=== PATIENT | male | born 1950 | race Caucasian/White ===

== ENCOUNTER → 2016-11-04 | Outpatient (CLI) | payer OTHER ==
--- NOTE | 2016-11-06 08:25 | MR ---
EXAMINATION TYPE: MR cervical spine wo con DATE OF EXAM: 11/04/2016 1:14 PM COMPARISON: NONE HISTORY: Upper extremity neurology TECHNIQUE: Multiplanar, multisequence images of the cervical spine were acquired. C2-C3: No evidence for degenerative disc disease. No disc bulge/herniation or protrusion. No Canal stenosis. Foramina are patent bilaterally. C3-C4: There is facet arthropathy. Mild degenerative disc disease and uncovertebral joint hypertrophy . Broad-based central disc bulging results in mild to moderate canal stenosis and mild left foraminal encroachment and moderate right foraminal encroachment. C4-C5: Severe degenerative disc disease with cervical spondylosis, facet arthropathy and uncovertebra l joint hypertrophy. Moderate to severe foraminal encroachment bilaterally. There is broad-based cent ral disc protrusion capped by spur with anterior mild mass effect upon the spinal cord. Severe spinal stenosis. C5-C6: Severe degenerative disc disease with left paracentral broad-based protrusion or small herniat ion. Mild bilateral foraminal encroachment and moderate degenerative disc disease. Herniation results in mild spinal stenosis. C6-C7: Severe degenerative disc disease with focal right paracentral disc herniation. There is severe mass effect upon the thecal sac and compression of the anterior margin the spinal cord. Uncovertebra l joint hypertrophy seen bilaterally. Neural foramina remain patent. C7-T1: Right paracentral disc protrusion. There is uncovertebral joint hypertrophy bilaterally. Neura l foramina remain patent. No spinal cord contact. Mild compression thecal sac. Cervical segments are intact. There is normal alignment. Cervical spinal cord is of normal signal. Craniovertebral junction relationships are within normal limits. IMPRESSION: 1. Multilevel severe degenerative disc disease. There is spinal cord compression secondary to disc he rniation C6-C7. 2. Severe canal stenosis C4-C5 with moderate canal stenosis C3-C4 and mild canal stenosis C5-C6 secon abbie to disc extrusions or herniations.
== END | disposition home or self-care (01) ==
LOC: RADMRIMAIN 12:26
PROVIDERS: ATTEND Physical Medicine & Rehabilitation
DX: M50.21 Other cervical disc displacement, high cervical region (principal); M50.31 Other cervical disc degeneration, high cervical region; M48.02 Spinal stenosis, cervical region
CPT/HCPCS: 72141

== ENCOUNTER → 2017-03-20 | Outpatient (CLI) | payer OTHER, MEDICARE ==
[2017-03-20 16:56] LABS: Non-African American GFR(MDRD) >60 (>60 ml/min/1.73 sqM)
== END | disposition home or self-care (01) ==
LOC: LABWHC1 16:17
PROVIDERS: ATTEND Physical Medicine & Rehabilitation
DX: M51.16 Intervertebral disc disorders with radiculopathy, lumbar region (principal)
CPT/HCPCS: 36415; 82565

== ENCOUNTER → 2017-03-21 | Outpatient (CLI) | payer OTHER ==
--- NOTE | 2017-03-22 15:37 | MR ---
EXAMINATION TYPE: MR lumbar spine wo/w con DATE OF EXAM: 03/21/2017 COMPARISON: NONE HISTORY: other intervertebral disc degeneration lsp CONTRAST: 17 mL intravenous MultiHance. TECHNIQUE: Multiplanar, multisequence images of the lumbar spine were acquired. FINDINGS: L5-S1: There is a left paracentral disc herniation displacing and compressing the exiting left S1 ner ve root. Facet hypertrophy is present. Loss of disc height is evident. Disc desiccation is present. L4-L5: There is mild disc bulge with mild anterior thecal sac compression. Increased signal is presen t on T2-weighted sequences suggesting an annular tear. No AP spinal canal stenosis is present. Neural foramen are patent. L3-L4: Minimal disc bulge is present with anterior thecal sac contact. No AP spinal canal stenosis pr esent. Neural foramen are patent. L2-L3: Minimal right paracentral disc bulge has minimal anterior thecal sac compression. No AP spinal canal stenosis or neural foraminal stenosis is present. L1-L2: No significant disc bulge or disc herniation. No spinal canal stenosis. No foraminal stenosi s. . T12-L1: No significant disc bulge or disc herniation. No spinal canal stenosis. No foraminal stenos is. . No abnormal enhancement. IMPRESSION: 1. Left paracentral disc herniation impinging the exiting left S1 nerve root near the foramen orifice . Correlate with the patient's radicular symptoms. 2. Degenerative disc changes with loss of disc height L5-S1. 3. Mild disc bulge L4-5. Annular tear may be present. 4. Minimal disc bulge L3-4.
== END | disposition home or self-care (01) ==
LOC: RADMRIMAIN 12:08
PROVIDERS: ATTEND Physical Medicine & Rehabilitation
DX: M51.26 Other intervertebral disc displacement, lumbar region (principal); M47.816 Spondylosis without myelopathy or radiculopathy, lumbar region
CPT/HCPCS: 72158; A9577

== ENCOUNTER 2017-06-06 09:06 | Day surgery (SDC) | payer OTHER ==
[2017-06-06] MEDS ORDERED: LACTATED RINGERS 1,000 ML IV ONE (09:49)
[2017-06-06] MEDS ORDERED: LIDOCAINE 1% 20 ML VIAL (10MG/ML) FOR IV START INTRADERMA ONE (09:50)
[2017-06-06] MEDS ORDERED: ONDANSETRON 4 MG/2 ML VIAL IVP ONE (09:53)
[2017-06-06] MEDS ORDERED: DEXAMETHASONE SOD PHOSPHATE 10 MG/ML 1 ML VIAL IV ONE (09:53)
[2017-06-06] MEDS ORDERED: fentaNYL (PF) 50 MCG/ML 2 ML AMP IVP ONE ×2 (11:08→11:23)
[2017-06-06] MEDS ORDERED: MIDAZOLAM 2 MG/2 ML VIAL IV ONE (11:49)
[2017-06-06] MEDS ORDERED: HYDROmorphone (PF) 1 MG/ML ONE (12:16)
[2017-06-06] MEDS ORDERED: PROPOFOL 10 MG/ML 20 ML VIAL IV ONE (12:16)
[2017-06-06] MEDS ORDERED: MIDAZOLAM 2 MG/2 ML VIAL ONE (12:16)
[2017-06-06] MEDS ORDERED: LIDOCAINE 1% INJ 10MG/ML (20 ML MDV) ONE (12:16)
[2017-06-06 12:54] VITALS: TEMP 96.9
--- NOTE | 2017-06-06 13:16 | FL ---
FLUOROSCOPY 7 seconds of fluoroscopy time were utilized during closed reduction of the left wrist. 4 images docum ent the procedure.
[2017-06-06 13:36] VITALS: RESP 18
[2017-06-06] MEDS ORDERED: HYDROmorphone 1 MG/ML 1 ML SYRINGE IVP ONE ×2 (13:38→13:43)
--- NOTE | 2017-06-06 13:51 | XR ---
FLUOROSCOPY 7 seconds of fluoroscopy time were utilized during closed reduction of the left breast. 4 images docu ment the procedure.
[2017-06-06 14:49] VITALS: BP 136/79; PULSE 4
--- NOTE | 2017-06-08 11:25 | OP ---
DATE OF PROCEDURE: 06/06/2017 CRIMINAL PROFILER: ( ) PREOPERATIVE DIAGNOSIS: Displaced fracture of the distal left radius and ulna styloid. POSTOPERATIVE DIAGNOSIS: Displaced fracture of the distal left radius and ulna styloid. OPERATION: Closed reduction of displaced fracture of the distal left radius and ulna styloid with application of long arm cast under anesthesia. PROCEDURE: The patient was taken to the operative suite and placed in the supine position. General inhalation anesthesia was performed by Department of Anesthesiology. A gentle closed reduction was performed on the distal radius and ulna styloid. X-rays were repeated. Application of a long arm fiberglass cast was applied. We repeated the x-rays post reduction as well as within the cast. ( ) reduction ( ) alignment and ( ) noted. Patient tolerated the procedure well and was transferred to recovery room satisfactory postop condition. GROSS PATHOLOGY: There is a dorsal angulated displaced comminuted fracture of the distal left radius and ulna styloid. EDWIN
== END 2017-06-06 15:03 | disposition home or self-care (01) ==
LOC: OR 09:06
PROVIDERS: ATTEND Orthopaedic Surgery
DX: S52.502A Unspecified fracture of the lower end of left radius, initial encounter for closed fracture (principal); S52.612A Displaced fracture of left ulna styloid process, initial encounter for closed fracture; W18.30XA Fall on same level, unspecified, initial encounter; I10 Essential (primary) hypertension; Z86.718 Personal history of other venous thrombosis and embolism; Z79.01 Long term (current) use of anticoagulants; K75.9 Inflammatory liver disease, unspecified; Z79.82 Long term (current) use of aspirin; Z79.891 Long term (current) use of opiate analgesic; Z79.899 Other long term (current) drug therapy; Z91.09 Other allergy status, other than to drugs and biological substances
CPT/HCPCS: 73100; 25605; J2250; J1100; J2405; J2001; J3010; J1170; J2704

== ENCOUNTER → 2017-07-19 | Outpatient (CLI) | payer OTHER ==
--- NOTE | 2017-07-19 13:22 | BD ---
EXAMINATION TYPE: MG DEXA axial skeleton. DATE OF EXAM: 07/19/2017 COMPARISON: NONE CLINICAL HISTORY: 67-year-old male personal history of healed traumatic fracture Height: 6 FT Weight: 195 FRAX RISK QUESTIONS: Alcohol (3 or more units per day): NO Family History (Parent hip fracture): NO Glucocorticoids (More than 3mos): NO (Ex: prednisone, prednisolone, methylprednisolone, dexamethasone, and hydrocortisone). History of Fracture in Adulthood: YES Secondary Osteoporosis: 1. Type 1 Diabetes: NO 2. Hyperthyroidism: NO 3. Menopause before 45: NA 4. Malnutrition: NO 5. Chronic liver disease: NO Rheumatoid Arthritis: NO Current Tobacco Use: NO RISK FACTORS HISTORY OF: History of Wrist Fracture: YES When: 2016 AND 2010 LEFT Surgery to Spine/Hip(right/left)/Wrist (right/left): LUMBAR SURG When: 2005 AND 2008 Active: NO MEDICATIONS: Additional Medications: LISINOPRIL,XERALTO,OXYCODONE, NEURONTIN, URINARY FLOW MEDS, DEPRESSION MEDS Additional History: EXAM MEASUREMENTS: Bone mineral densitometry was performed using the [employer] System. Bone mineral density as measured about the Lumbar spine is: ----- L1-L4(G/cm2): LUMBAR SURG X 2 Bone mineral density about the R hip (g/cm2): 0.834 Bone mineral density about the L hip (g/cm2): 0.864 T Score values are as follows: -----R Neck: -1.5 -----L Neck: -1.3 -----R Total: 0.3 -----L Total: 0.2 Bone mineral density has: Increased 0.7% since study of: 2009 IMPRESSION: Osteopenia (T Score between -2.5 and -1 as noted by T score values in both hips). Lumbar spine measur ements not made as there is previous surgery here. There is slightly increased risk of fracture and the patient may be considered for treatment. Re-Scre en 2-5 years. NOTE: T-SCORE=SD OF THE YOUNG ADULT MEAN.
== END | disposition home or self-care (01) ==
LOC: RADBDWWP 08:09
PROVIDERS: ATTEND Family Medicine
DX: Z09 Encounter for follow-up examination after completed treatment for conditions other than malignant neoplasm (principal); M85.88 Other specified disorders of bone density and structure, other site; Z87.81 Personal history of (healed) traumatic fracture
CPT/HCPCS: 77080

== ENCOUNTER → 2017-12-18 | Outpatient (CLI) | payer OTHER ==
[2017-12-18 15:02] VITALS: BP 147/76; PULSE 71; RESP 16; TEMP 97.7
--- NOTE | 2017-12-18 15:21 | P.PN ---
Subjective Progress Note Date: 12/18/17 Principal diagnosis: Lumbar postlaminectomy pain syndrome. The patient had 3 back surgeries the last one was in July 2017 ,which was lumbar fusion between L4 and S1. His pain is still mostly in the lower back with radiation to the thighs bilaterally. He denies any bowel or bladder dysfunction or any weakness in his lower extremities. The patient was able to go down on his oxycodone dose from 120 mg a day before surgery to 20-30 mg a day after surgery. His pain gets worse with activity and was sitting up and during the interview he was lying back in chair. By physical exam he has well-healed scar from his previous back surgery. He has significant tenderness around the sacroiliac joints bilaterally. However Reed's test was negative bilaterally. Straight leg raising test negative bilaterally. Internal and external rotation of the hip joints did not elicit any pain in the hips. Neuro exam of the lower extremities showed normal and symmetrical muscle strength but he has absent left ankle reflex. The patient gets his prescription for oxycodone from Dr. Arauz. Objective - Vital Signs Vital signs: Vital Signs Temp 97.7 F 12/18/17 14:52 Pulse 71 12/18/17 14:52 Resp 16 12/18/17 14:52 BP 147/76 12/18/17 14:52 Pulse Ox Intake & Output 12/17/17 12/18/17 12/18/17 18:59 06:59 18:59 Weight 86.183 kg Assessment and Plan Plan: Assessment: 1-bilateral sacroiliitis/sacroiliac joints dysfunction 2-lumbar postlaminectomy pain syndrome I will schedule the patient to have bilateral sacroiliac joint steroid injection under fluoroscopic guidance.
== END ==
LOC: PNWHC3 14:18
PROVIDERS: ATTEND Anesthesiology
DX: M96.1 Postlaminectomy syndrome, not elsewhere classified (principal); Z79.891 Long term (current) use of opiate analgesic
CPT/HCPCS: 99211

== ENCOUNTER 2018-01-18 07:31 | Day surgery (SDC) | payer OTHER ==
[2018-01-18 08:03] VITALS: RESP 16; TEMP 97.8
[2018-01-18] MEDS ORDERED: LIDOCAINE 1% 20 ML VIAL (10MG/ML) FOR IV START INTRADERMA ONE (08:07)
[2018-01-18] MEDS ORDERED: LACTATED RINGERS 1,000 ML IV ONE (08:07)
--- NOTE | 2018-01-18 08:13 | P.PCN ---
Date of Procedure: 01/18/18 Procedure(s) Performed: Bilateral sacroiliac joint steroid injection under fluoroscopy Condition: stable Disposition: PACU Description of Procedure: Preoperative diagnoses: 1. Lumbosacral Spondylosis 2. Bilateral sacroiliitis. Postoperative diagnoses: Same as preoperative diagnosis. Procedure: Bilateral sacroiliac joint steroid injection under fluoroscopic guidance. Surgeon: Taiwo Foley M.D. Anesthesia: Conscious sedation with Versed 2 mg and fentanyl 100 micrograms and local infiltration with lidocaine 1% 4 ml EBL: None Procedure indication: The patient had a history of severe chronic low back pain , diagnosed with sacroiliitis and lumbar sacral facet arthropathy unresponsive to conservative treatment. Procedure description: The patient was seen and identified in the preoperative holding area, risks and benefits and alternative of the procedure and possible complications discussed with the patient, and he agreed with the preceding, patient signed the consent, an IV was started, and vital signs were monitored and were stable throughout the procedure, patient was placed in the prone position or table and the lumbosacral area was prepped and draped with a sterile fashion, vital signs were closely monitored during the procedure, the fluoroscopy camera was placed in the contralateral oblique view on the right sacroiliac joint and the lower part of the joint was identified a 2 mL then a 25 -gauge Quincke-type spinal needle advanced slowly under fluoroscopy and placed in the posterior and inferior border of the right sacroiliac joint, placement confirmed with AP and lateral view, and after appropriate needle placement confirmed and after negative aspiration for heme and CSF and there was , 3 ml of Marcaine 0.5% and 40 mg of Kenalog injected after negative aspiration, no paresthesia during the injection, no resistance to injection, and the needle was removed. The entire same procedure was repeated for the left sacroiliac joint Patient tolerated the procedure well without any complication. The patient returned to supine position after the back was cleaned and a Band- Aid applied, the patient transported to recovery room in stable condition and he was monitored for 30 minutes before he was discharged home and then patient was reexamined before going home and patient was discharged in stable condition and patient will follow up with the pain clinic in a few weeks
[2018-01-18] MEDS ORDERED: IV FLUID CONTINUATION 1,000 ML IV ONE (08:38)
[2018-01-18 09:21] VITALS: BP 122/83; PULSE 46
--- NOTE | 2018-01-18 10:27 | FL ---
EXAMINATION TYPE: FL guided pain mgmt statistic DATE OF EXAM: 01/18/2018 CLINICAL HISTORY: Low back and sacroiliac joint pain. TECHNIQUE: Fluoroscopy. COMPARISON: None. FINDINGS: Fluoroscopic guidance was provided during pain relief procedure performed by Dr. Smith . A total of 11 seconds of fluoroscopic time was utilized during the procedure and two spot images are acquired. Images acquired shows needle localization at level of bilateral sacroiliac joints. There is partial visualization of fusion hardware in the lower lumbar spine. IMPRESSION: As Above.
== END 2018-01-18 09:34 | disposition home or self-care (01) ==
LOC: ORPAIN 07:31
PROVIDERS: ATTEND Anesthesiology
DX: G89.29 Other chronic pain (principal); M46.1 Sacroiliitis, not elsewhere classified; M47.816 Spondylosis without myelopathy or radiculopathy, lumbar region; M96.1 Postlaminectomy syndrome, not elsewhere classified; H91.90 Unspecified hearing loss, unspecified ear; Z79.01 Long term (current) use of anticoagulants
CPT/HCPCS: 27096; J3301

== ENCOUNTER → 2018-02-05 | Outpatient (CLI) | payer OTHER ==
--- NOTE | 2018-02-05 15:24 | P.PAINPG ---
Subjective Progress Note Date: 02/05/18 This is follow-up visit for this patient with a history of severe and chronic low back pain secondary to lumbar degenerative disc diseases , sacroiliitis, he had lumbar laminectomy and fusion surgery , we have done bilateral sacroiliac joint steroid injection and this helped his low back pain significantly, the pain relief lasted for a few weeks Patients currently on Patient denies any side effects of the medication, denies excessive drowsiness or sleepiness, denies suicidal ideation, and reports that the current pain medication is helping To control the pain ,and improve activity of daily living Patient denies any motor or sensory deficit , patient denies any fever or night sweats, denies any change in the bowel movements or urination Objective - Vital Signs Vital signs: Intake & Output 02/04/18 02/05/18 02/05/18 18:59 06:59 18:59 Weight 83.007 kg - Exam Physical Examinations : 1-Constitutiona : Cooperative , not in acute distress . 2-HEENT : nech ; supple , no Lymphadenopathy , normal thyroid size . eyes : no ptosis , no icterus, no photophobia . ENT : normal of hearing , normal oropharynx , no Thrush . 3- Respiratory : Chest clear to auscultations Bilaterally , no wheezing , no Rhonchi . 4- Cardiovascular : regular rate and rhythem , S1 , S2 , no S3 , no S4. 5- Gastrointestinal : abdomen soft no tenderness , bowel sounds positive all four quadrents , no organomegally . 6- Genitourinary : Defferred . 7- neurologic : Cranial nerve II to XII intact , no focal neurological deffecit . 8-psychatric : alert , oriented X 3 , appropriate affect , intact judgment and insight . 9-Lymphatic : no Lymphadenopathy . 10- musculoskeltal : , Lumber spine = normal moter stegnth lower extremities ,thigh and legs .5/5 deep tendon reflexes : normal Knee Jerk , normal ankle Jerk . Sever tenderness over the Sacroiliac joint on the Right , and Left side Assessment and Plan Plan: Assessment and plan= chronic low back pain secondary to lumbar degenerative disc disease , lumbar spondylosis with lumbar facet arthropathy , failed back surgery syndrome and lumbar area, sacroiliitis Patient had a good result after the bilateral sacroiliac joint steroid injections, he got more than 60% improvement in his pain and pain relief lasted for a few weeks Patient will be good candidate to have repeat bilateral sacroiliac joint steroid injections PQRS Measure Charge Sheet Measure #130: Documentation of Current Meds in Medical Chart: Patient's medications documented in chart Measure #226: Tobacco Use: Screen & Cessation Intervention: Pt not a tobacco user Measure #111: Pneumonia Vaccination: Pneumococcal vaccine NOT administered or previously given Measure #47: Advance Care Plan: Advance care planning discussed & documented, plan or surrogate given Measure #412: Opioid Treatment Agreement: No documentation of signed opioid treatment agreement Measure #408: Opioid Therapy Follow-up Evaluation: Patient had NO f/u eval minimum every 3 months during opioid therapy Measure #317: Preventitive Care & Scrn High Bld Press & F/U: Normal blood pressure, f/u not required Measure #128: Body Mass Index (BMI) Screening & Follow-up: BMI documented within normal parameters Measure #131: Pain Assessment & Follow-up: Pain positive & plan documented, Follow-up scheduled Measure #431: Unhealthy Alcohol Use Preventative Care & Scrn: Patient not identified as an unhealthy alcohol user PQRS Narrative: Smoking Status Former smoker Do You Want the Pneumonia No Vaccine AT THIS TIME? Pain Intensity [Generalized] 4 Scale Used Numeric (1 - 10) Hx Alcohol Use (MH) Yes: Occasional Home Medications: Ambulatory Orders Tamsulosin HCl [Flomax] 0.4 mg PO DAILY #4 cap 01/10/16 ALPRAZolam [Xanax] 0.5 mg PO DAILY PRN 09/25/16 Gabapentin 600 mg PO TID 09/25/16 Lisinopril [Zestril] 10 mg PO DAILY 09/25/16 Methylphenidate HCl [Concerta] 36 mg PO BID 09/25/16 Multivitamins, Thera [Multivitamin (formulary)] 1 each PO DAILY@1200 #20 tab Rivaroxaban [Xarelto] 1 tab PO DAILY 06/06/17 Diazepam [Valium] 10 mg PO BID 12/18/17 Sertraline [Zoloft] 200 mg PO DAILY 12/18/17 oxyCODONE HCL 10 mg PO TID 12/18/17 Controlled Substance Measures - Controlled Substance Measures Is patient prescribed a controlled substance at discharge?: No If prescribed controlled substance>3 days was MAPS reviewed?: No When asked, does pt state using other controlled substances?: No
== END | disposition home or self-care (01) ==
LOC: PNWHC3 12:37
PROVIDERS: ATTEND Specialist
DX: G89.29 Other chronic pain (principal); M54.5 Low back pain; M51.36 Other intervertebral disc degeneration, lumbar region; M47.816 Spondylosis without myelopathy or radiculopathy, lumbar region; M96.1 Postlaminectomy syndrome, not elsewhere classified; M46.1 Sacroiliitis, not elsewhere classified; M46.86 Other specified inflammatory spondylopathies, lumbar region; Z98.1 Arthrodesis status; Z79.52 Long term (current) use of systemic steroids; Z87.891 Personal history of nicotine dependence; Z79.891 Long term (current) use of opiate analgesic; Z79.899 Other long term (current) drug therapy
CPT/HCPCS: 99211

== ENCOUNTER 2018-02-22 06:49 | Day surgery (SDC) | payer OTHER ==
[2018-02-20 10:37] VITALS: BMI 24.8
[2018-02-22 07:36] VITALS: RESP 18; TEMP 97.8
[2018-02-22] MEDS ORDERED: LACTATED RINGERS 1,000 ML IV ONE (07:51)
[2018-02-22] MEDS ORDERED: LIDOCAINE 1% 20 ML VIAL (10MG/ML) FOR IV START INTRADERMA ONE (07:51)
--- NOTE | 2018-02-22 08:05 | P.PCN ---
Date of Procedure: 02/22/18 Surgeon: Lane Gallardo Description of Procedure: Preoperative diagnoses: Bilateral sacroilitis Postoperative diagnoses: Bilateral sacroilitis. Procedure: Bilateral sacroiliac joint steroid injection under fluoroscopic guidance. Surgeon: Lane Gallardo MD Anesthesia: IV sedation per hospital guidelines EBL: None Procedure indication: The patient had a history of severe chronic low back pain , diagnosed with sacroiliitis and lumbar sacral facet arthropathy unresponsive to conservative treatment. Procedure description: The patient was seen and identified in the preoperative holding area, risks and benefits and alternative of the procedure and possible complications discussed with the patient, and he agreed with the preceding, patient signed the consent, an IV was started, and vital signs were monitored and were stable throughout the procedure, patient was placed in the prone position or table and the lumbosacral area was prepped and draped with a sterile fashion, vital signs were closely monitored during the procedure, the fluoroscopy camera was placed in the contralateral oblique view on the right sacroiliac joint and the lower part of the joint was identified a 2 mL then a 25 -gauge Quincke-type spinal needle advanced slowly under fluoroscopy and placed in the posterior and inferior border of the right sacroiliac joint, placement confirmed with AP and lateral view, and after appropriate needle placement confirmed and after negative aspiration for heme and CSF and there was , 3 ml of Marcaine 0.5% and 40 mg of Kenalog injected after negative aspiration, no paresthesia during the injection, no resistance to injection, and the needle was removed. The entire same procedure was repeated for the left sacroiliac joint Patient tolerated the procedure well without any complication. The patient returned to supine position after the back was cleaned and a Band- Aid applied, the patient transported to recovery room in stable condition and he was monitored for 30 minutes before he was discharged home and then patient was reexamined before going home and patient was discharged in stable condition and patient will follow up with the pain clinic in a few weeks
[2018-02-22] MEDS ORDERED: IV FLUID CONTINUATION 1,000 ML IV ONE (08:20)
[2018-02-22 08:35] VITALS: BP 110/72; PULSE 57
--- NOTE | 2018-02-22 08:36 | FL ---
EXAMINATION TYPE: FL guided pain mgmt statistic DATE OF EXAM: 02/22/2018 CLINICAL HISTORY: Low back and sacroiliac joint pain. TECHNIQUE: Fluoroscopy. COMPARISON: None. FINDINGS: Fluoroscopic guidance was provided during pain relief procedure performed by anesthesia Dr Arnaldo Gallardo. A total of 3 seconds of fluoroscopic time was utilized during the procedure and two spot i mages are acquired. Images acquired shows needle localization at level of bilateral sacroiliac joint s. There is partial visualization of surgical change at the lumbosacral junction. IMPRESSION: As Above.
== END 2018-02-22 08:57 | disposition home or self-care (01) ==
LOC: ORPAIN 06:49
PROVIDERS: ATTEND Anesthesiology
DX: M46.1 Sacroiliitis, not elsewhere classified (principal); Z79.01 Long term (current) use of anticoagulants; J30.81 Allergic rhinitis due to animal (cat) (dog) hair and dander; J30.1 Allergic rhinitis due to pollen
CPT/HCPCS: 27096; J2250; J3301; J3010

== ENCOUNTER → 2018-03-12 | Outpatient (CLI) | payer OTHER ==
[2018-03-12 12:22] VITALS: BP 161/102; PULSE 72; RESP 16
--- NOTE | 2018-03-12 12:53 | P.PAINPG ---
Subjective Progress Note Date: 03/12/18 This is follow-up visit for this patient with a history of severe and chronic low back pain secondary to bilateral sacroiliitis, lumbar spondylosis facet arthropathy, We have done an interventional pain procedure bilateral sacroiliac joint steroid injections 2 , and he reported that he had more than 50% improvement in his low back pain after each injection The patient currently on oxycodone 10 when necessary Patient denies any side effect of the medication , patient denies any excessive drowsiness or sleepiness, patient denies any suicidal ideation, Patient reported that the current medication is helping to control the pain and improve the activity of daily livings, Patient denies any motor or sensory deficit, denies any change in the bowel movement or urination, patient denies any fever or night sweats. Objective - Vital Signs Vital signs: Vital Signs Temp Pulse 72 03/12/18 12:15 Resp 16 03/12/18 12:15 BP 161/102 03/12/18 12:15 Pulse Ox Intake & Output 03/11/18 03/12/18 03/12/18 18:59 06:59 18:59 Weight 80.059 kg - Exam Physical Examinations : 1-Constitutiona : Cooperative , not in acute distress . 2-HEENT : nech ; supple , no Lymphadenopathy , normal thyroid size . eyes : no ptosis , no icterus, no photophobia . ENT : normal of hearing , normal oropharynx , no Thrush . 3- Respiratory : Chest clear to auscultations Bilaterally , no wheezing , no Rhonchi . 4- Cardiovascular : regular rate and rhythem , S1 , S2 , no S3 , no S4. 5- Gastrointestinal : abdomen soft no tenderness , bowel sounds , no organomegally . 6- Genitourinary : Defferred . 7- neurologic : Cranial nerve II to XII intact , no focal neurological deffecit . 8-psychatric : alert , oriented X 3 , appropriate affect , intact judgment and insight . 9-Lymphatic : no Lymphadenopathy . 10- musculoskeltal : Lumber spine = normal moter stegnth lower extremities ,thigh and legs .02/10 Assessment and Plan Plan: Assessment and plan= bilateral sacroiliitis , lumbar spondylosis Patient had good results after the bilateral sacroiliac joint steroid injections on 2 different occasions he had more than 50 % improvement in his pain after each sacroiliac joint steroid injections , the patient will be in good candidate to have radiofrequency ablation of the sacroiliac joint (radiofrequency ablation of the L5-S1 dorsal ramus, and the radiofrequency ablation of the lateral branches of S1/S2/S3 ) we will do the left side first and later on with doing the right side, also patient complaining of some muscle spasms especially at night but this could happen in the morning, and he could benefit from Flexeril 10 mg twice a day when necessary muscle spasm, procedure risk and benefits and alternatives discussed with the patient and he agreed with proceeding patient getting prescription refill for his medication from his primary care Time with Patient: Less than 30 PQRS Measure Charge Sheet Measure #130: Documentation of Current Meds in Medical Chart: Patient's medications documented in chart Measure #226: Tobacco Use: Screen & Cessation Intervention: Pt not a tobacco user Measure #111: Pneumonia Vaccination: Pneumococcal vaccine NOT administered or previously given Measure #47: Advance Care Plan: Advance care planning discussed & documented, plan or surrogate given Measure #412: Opioid Treatment Agreement: No documentation of signed opioid treatment agreement Measure #408: Opioid Therapy Follow-up Evaluation: Patient had NO f/u eval minimum every 3 months during opioid therapy Measure #317: Preventitive Care & Scrn High Bld Press & F/U: Pre-hypertensive or hypertensive BP documented, pt will f/u with PCP Measure #128: Body Mass Index (BMI) Screening & Follow-up: BMI documented ABOVE normal parameters - f/u documented Measure #131: Pain Assessment & Follow-up: Pain positive & plan documented Measure #431: Unhealthy Alcohol Use Preventative Care & Scrn: Patient not identified as an unhealthy alcohol user PQRS Narrative: Smoking Status Former smoker Do You Want the Pneumonia No Vaccine AT THIS TIME? Blood Pressure 161/102 Pain Intensity [Bilateral 4 Lower Back] Scale Used Numeric (1 - 10) Hx Alcohol Use (MH) Yes: Occasional Home Medications: Ambulatory Orders Tamsulosin HCl [Flomax] 0.4 mg PO DAILY #4 cap 01/10/16 ALPRAZolam [Xanax] 0.5 mg PO DAILY PRN 09/25/16 Lisinopril [Zestril] 10 mg PO DAILY 09/25/16 Methylphenidate HCl [Concerta] 36 mg PO BID 09/25/16 Multivitamins, Thera [Multivitamin (formulary)] 1 each PO DAILY@1200 #20 tab Rivaroxaban [Xarelto] 20 mg PO HS 06/06/17 Diazepam [Valium] 10 mg PO BID 12/18/17 Sertraline [Zoloft] 200 mg PO DAILY 12/18/17 oxyCODONE HCL 10 mg PO TID 12/18/17 Controlled Substance Measures - Controlled Substance Measures Is patient prescribed a controlled substance at discharge?: No
== END | disposition home or self-care (01) ==
LOC: PNWHC3 11:50
PROVIDERS: ATTEND Specialist
DX: G89.29 Other chronic pain (principal); M47.816 Spondylosis without myelopathy or radiculopathy, lumbar region; M46.1 Sacroiliitis, not elsewhere classified; Z87.891 Personal history of nicotine dependence; Z79.899 Other long term (current) drug therapy; Z79.891 Long term (current) use of opiate analgesic
CPT/HCPCS: 99211

== ENCOUNTER → 2019-07-22 | Outpatient (CLI) | payer OTHER ==
--- NOTE | 2019-07-22 13:22 | BD ---
EXAMINATION TYPE: Axial Bone Density DATE OF EXAM: 07/22/2019 COMPARISON: 07/19/2017 CLINICAL HISTORY: disorder of bone Height: 6' Weight: 191 FRAX RISK QUESTIONS: History of Fracture in Adulthood: y Secondary Osteoporosis: RISK FACTORS HISTORY OF: History of Wrist Fracture: left When: age 67 Surgery to Spine: lumbar 2016 Wrist (left): 2017 Active: n MEDICATIONS: Additional Medications: blood thinner, PE for DVT 5 years ago, high blood pressure, pain Additional History: EXAM MEASUREMENTS: Bone mineral densitometry was performed using the [employer] System. Bone mineral density about the R hip (g/cm2): 0.894 Bone mineral density about the L hip (g/cm2): 0.800 T Score values are as follows: -----R Neck: -1.0 -----L Neck: -1.7 -----R Total: 0.5 -----L Total: 0.2 Bone mineral density has: Increased 1.1%since study of: 07/19/2017 Bone mineral density about the R Wrist (g/cm2): 0.686 T Score values are as follows: -----Dist. R+U: -0.7 -----Prox. R+U: -1.0 -----Radius total: -1.0 IMPRESSION: Osteopenia (T Score between -2.5 and -1). There is slightly increased risk of fracture and the patient may be considered for treatment. Re-Screen 2-5 years. NOTE: T-SCORE=SD OF THE YOUNG ADULT MEAN.
== END ==
LOC: RADBDWWP 09:58
PROVIDERS: ATTEND Family Medicine
DX: M85.80 Other specified disorders of bone density and structure, unspecified site (principal)
CPT/HCPCS: 77080

== ENCOUNTER → 2019-09-23 | Outpatient (CLI) | payer OTHER ==
--- NOTE | 2019-09-23 11:54 | MR ---
MR left foot HISTORY: Pain in left foot, Palmar fascial fibromatosis Multiplanar multisequence imaging obtained through the left foot No comparisons submitted for correlation The plantar aponeurosis shows a focal thickening at its distal aspect, sagittal image #14 of the T2 d isabel set, coronal images #21 and 20 along the medial aspect. Bone marrow signal is relatively maintain ed, some probable reactive marrow signal changes in the distal first metatarsal. Achilles tendon is i ntact. Articular cartilage signal is within normal limits. Degenerative change present at the first m etatarsophalangeal joint. Flexor and extensor tendons are intact. Peroneal longus and brevis tendons are intact. There is some fluid signal present at the posterior subtalar joint. No evident fracture o r dislocation. 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
== END | disposition home or self-care (01) ==
LOC: RADMRIMAIN 09:30
PROVIDERS: ATTEND Orthopaedic Surgery
DX: M72.0 Palmar fascial fibromatosis [Dupuytren] (principal)

== ENCOUNTER → 2024-05-07 | Outpatient (CLI) | payer MEDICARE, BC ==
--- NOTE | 2024-05-07 20:41 | US ---
EXAMINATION TYPE: US kidneys/renal and bladder DATE OF EXAM: 05/07/2024 COMPARISON: NONE CLINICAL INDICATION: Male, 74 years old with history of N28.9 DISORDER OF KIDNEY AND URETER, UNSPECIF IED; abn labs per patient, no symptoms EXAM MEASUREMENTS: Right Kidney: 11.4 x 4.9 x 6.2 cm Left Kidney: 11.9 x 4.9 x 5.9 cm Right Kidney: No hydronephrosis or masses seen Left Kidney: No hydronephrosis or masses seen Bladder: wnl Bilateral Jets seen: Yes Renal cortical thickness and echogenicity is normal. There is cortical lobulation. IMPRESSION: No hydronephrosis or nephrolithiasis.
== END | disposition home or self-care (01) ==
LOC: RADUSWWP 14:50
PROVIDERS: ATTEND Internal Medicine
DX: N28.9 Disorder of kidney and ureter, unspecified (principal)
CPT/HCPCS: 76770

== ENCOUNTER → 2024-07-02 | Outpatient (CLI) | payer MEDICARE, BC ==
[2024-07-02 12:22] LABS: Basophils # (A) 0.1 k/uL (0-0.2); Basophils % (A) 1 %; Eosinophils # (A) 0.1 k/uL (0-0.7); Eosinophils % (A) 2 %; HCT 42.1 % (39.0-53.0); HGB 14.1 gm/dL (13.0-17.5); Lymphocytes # (A) 2.6 k/uL (1.0-4.8); Lymphocytes % (A) 31 %; MCHC 33.5 g/dL (31.0-37.0); MCV 92.7 fL (80.0-100.0); Mean Platelet Volume 7.8; Monocytes # (A) 0.5 k/uL (0-1.0); Monocytes % (A) 6 %; Neutrophils % (A) 59 %; Platelet Count 386 k/uL (150-450); RBC 4.54 m/uL (4.30-5.90); RDW 13.1 % (11.5-15.5); WBC 8.5 k/uL (3.8-10.6)
[2024-07-02 12:38] LABS: ALT 31 U/L (4-49); AST 29 U/L (17-59); African American GFR (CKD) 68 (>60 ml/min/1.73 sqM); Albumin 4.6 g/dL (3.5-5.0); Albumin/Globulin Ratio 1.8; Alkaline Phosphatase 64 U/L (38-126); Anion Gap 10 mmol/L; Blood Urea Nitrogen 25 mg/dL (9-20); Calcium 10.5 mg/dL (8.4-10.2); Carbon Dioxide 29 mmol/L (22-30); Chloride 101 mmol/L (98-107); Globulin 2.5 g/dL; Glucose 106 mg/dL (74-99); Non-African American GFR(CKD) 59 (>60 ml/min/1.73 sqM); Potassium 3.9 mmol/L (3.5-5.1); Sodium 140 mmol/L (137-145); Total Bilirubin 0.8 mg/dL (0.2-1.3); Total Protein 7.1 g/dL (6.3-8.2)
[2024-07-02 14:04] LABS: Appearance,Urine Clear (Clear); Bilirubin,Urine Negative (Negative); Blood,Urine Small (Negative); Color,Urine Yellow; Glucose,Urine (UA) Negative (Negative); Hyaline Casts,Urine 2 /lpf (0-2); Ketones,Urine Negative (Negative); Leukocyte Esterase,Urine Negative (Negative); Mucus,Urine Few /hpf; Nitrite,Urine Negative (Negative); Protein,Urine Negative (Negative); RBC,Urine 3 /hpf (0-5); Squamous Epithelial Cell,Urine <1 /hpf (0-4); Urobilinogen,Urine <2.0 mg/dL (<2.0); WBC,Urine <1 /hpf (0-5)
[2024-07-02 14:14] LABS: RBC Morphology Normal
--- NOTE | 2024-07-02 15:07 | CT ---
EXAMINATION TYPE: CT ChestAbdPelvis w con DATE OF EXAM: 07/02/2024 COMPARISON: 01/10/2016 HISTORY: abnormal weight loss CT DLP: 1778 mGycm CONTRAST: CT scan of the chest, abdomen and pelvis is performed with Oral Contrast and with IV Contrast, patien t injected with 100 mL of Isovue 300. CT Chest: LUNGS: The lungs are clear and free of infiltrate or atelectasis. No pulmonary nodule or mass is det ected. No pleural effusion or CT evidence of interstitial lung disease. MEDIASTINUM: 4.1 cm ascending thoracic aortic aneurysm. No evidence for dissection. The heart is not enlarged. No evidence for mediastinal mass or adenopathy. HILAR STRUCTURES: No evidence for mass. No hilar adenopathy is appreciated. OTHER: No significant abnormality. CONTRAST CT ABDOMEN AND PELVIS FINDINGS: LIVER/GB: No calcified gallstones. No space occupying hepatic lesion. Biliary tree is of normal ca liber. PANCREAS: No inflammation. No distinct mass. SPLEEN: No splenic enlargement. No lesion seen. ADRENALS: No nodule. No thickening. KIDNEYS/BLADDER: No hydronephrosis. No nephrolithiasis. No disctinct renal mass. BOWEL: Normal appendix. Normal bowel caliber. No inflammation. GENITAL ORGANS: No gross abnormality. LYMPH NODES: No greater than 1cm abdominal or pelvic lymph nodes are appreciated. AORTA: No significant abnormality. OSSEOUS STRUCTURES: Postoperative changes lower lumbar spine. OTHER: No significant additional abnormality is seen. IMPRESSION: 1. No significant abnormality to account for the patient's symptoms. [facility], , 07/02/2024 3:05 PM
[2024-07-02 16:39] LABS: Protein, Total 7.1 g/dL (6.2-8.2)
[2024-07-02 17:20] LABS: Hepatitis C IgG Antibody Reactive (Nonreactive)
[2024-07-02 19:28] LABS: HIV 2 AB Non-Reactive (Non-Reactive); HIV AB P24 Non-Reactive (Non-Reactive); HIV P24 AG Non-Reactive (Non-Reactive)
[2024-07-04 15:51] LABS: Albumin 4.22 g/dL (3.80-4.90); Gamma Globulin 0.69 g/dL (0.70-1.50)
== END | disposition home or self-care (01) ==
LOC: RADCTMAIN 11:30
PROVIDERS: ATTEND Internal Medicine
DX: R63.4 Abnormal weight loss (principal)
CPT/HCPCS: 36415; 71260; 74177; 80053; 81001; 82533; 84165; 84443; 85025; 86803; 87390

== ENCOUNTER → 2024-07-26 | Outpatient (CLI) | payer MEDICARE, BC ==
--- NOTE | 2024-07-26 17:10 | CA ---
Transthoracic Echo Report Name: Randal Robledo Age: 74 Gender: M : 1950 Exam Date: 07/26/2024 14:48 Exam Location: [facility] Ht (in): 73 Wt (lb): 179 Ordering Physician: Leo Bowen DO Attending/Referring Phys: Leo Bowne DO [facility] SOFIYA Procedure CPT: Indications: I71.20 THORACIC AORTIC ANEURYSM, WITHOUT RUPTURE, Cardiac Hx: Technical Quality: Good Contrast 1: Total Dose (mL): Contrast 2: Total Dose (mL): MEASUREMENTS (Male / Female) Normal Values 2D ECHO LV Diastolic Diameter PLAX 4.2 cm 4.2 - 5.9 / 3.9 - 5.3 cm LV Systolic Diameter PLAX 2.7 cm IVS Diastolic Thickness 1.4 cm 0.6 - 1.0 / 0.6 - 0.9 cm LVPW Diastolic Thickness 1.2 cm 0.6 - 1.0 / 0.6 - 0.9 cm LV Relative Wall Thickness 0.6 RV Internal Dim ED PLAX 2.8 cm Aortic Root Diameter 3.8 cm LA Systolic Diameter LX 3.4 cm 3.0 - 4.0 / 2.7 - 3.8 cm LV Diastolic Volume MOD BP 71.1 cm??? 67 - 155 / 56 - 104 cm??? LV Systolic Volume MOD BP 31.4 cm??? 22 - 58 / 19 - 49 cm??? LV Ejection Fraction MOD BP 55.9 % >= 55 % LV Cardiac Index MOD BP 1553.3 cm???/min???m??? LV Diastolic Volume MOD 4C 86.7 cm??? LV Systolic Volume MOD 4C 35.3 cm??? LV Ejection Fraction MOD 4C 59.2 % LV Cardiac Index MOD 4C 2007.7 cm???/min???m??? LV Diastolic Length 4C 8.5 cm LV Systolic Length 4C 7.2 cm LV Diastolic Volume MOD 2C 54.9 cm??? LV Systolic Volume MOD 2C 25.3 cm??? LV Ejection Fraction MOD 2C 54.0 % LV Cardiac Index MOD 2C 1157.9 cm???/min???m??? LV Diastolic Length 2C 7.8 cm LV Systolic Length 2C 6.5 cm LA Volume 52.1 cm??? 18 - 58 / 22 - 52 cm??? LA Volume Index 25.5 cm???/m??? 16 - 28 cm???/m??? Ascending Aorta Diameter 3.9 cm M-MODE Aortic Root Diameter MM 3.9 cm LA Systolic Diameter MM 3.4 cm LA Ao Ratio MM 0.9 AV Cusp Separation MM 2.1 cm DOPPLER AV Peak Velocity 112.9 cm/s AV Peak Gradient 5.1 mmHg MV Area PHT 2.5 cm??? Mitral E Point Velocity 54.8 cm/s Mitral A Point Velocity 76.4 cm/s Mitral E to A Ratio 0.7 MV Deceleration Time 300.6 ms TR Peak Velocity 217.3 cm/s TR Peak Gradient 18.9 mmHg FINDINGS Left Ventricle Left ventricular ejection fraction is estimated at 55-60%. Mildly increased septal wall thickness. Normal left ventricular systolic function with no obvious regional wall motion abnormalities. Left ventricular cavity size normal. Right Ventricle Normal right ventricular size and function. Right ventricular systolic pressure within normal limits. Right Atrium Normal right atrial size. Left Atrium Normal left atrial size. Mitral Valve Structurally normal mitral valve. Trace mitral regurgitation. No mitral stenosis. Aortic Valve Trileaflet aortic valve. No aortic stenosis. Trace aortic regurgitation. Tricuspid Valve Structurally normal tricuspid valve. Mild tricuspid regurgitation. No tricuspid stenosis. Pulmonic Valve Structurally normal pulmonic valve. Trace pulmonic regurgitation. No pulmonic stenosis. Pericardium No pericardial or pleural effusion. Aorta Mild aortic dilatation at the level of the sinuses of valsalva (root) 3.9cm. CONCLUSIONS Left ventricular ejection fraction 55-60% Mildly increased left ventricular wall thickness Trace mitral regurgitation Mild tricuspid regurgitation No pericardial effusion Previewed by: Dr. Kt Herrera DO (Electronically Signed) Final Date: 26 July 2024 17:09
== END | disposition home or self-care (01) ==
LOC: RADECHMAIN 14:38
PROVIDERS: ATTEND Internal Medicine
CPT/HCPCS: 93306

== ENCOUNTER → 2024-09-20 | Outpatient (CLI) | payer MEDICARE, BC | END | disposition home or self-care (01) | LOC: LABWHC1 11:27 | PROVIDERS: ATTEND Internal Medicine | DX: Z86.19 Personal history of other infectious and parasitic diseases (principal) | CPT/HCPCS: 36415; 87522 ==

== ENCOUNTER → 2024-09-20 | Outpatient (CLI) | payer MEDICARE, BC ==
[2024-09-20 15:22] LABS: Appearance,Urine Clear (Clear); Bilirubin,Urine Negative (Negative); Blood,Urine Negative (Negative); Color,Urine Dark Yellow (Yellow); Ketones,Urine Negative (Negative); Nitrite,Urine Negative (Negative); PH, Urine 7.5; Specific Gravity,Urine 1.015 (1.001-1.030); Urobilinogen,Urine 0.2 E.U./DL
[2024-09-20 15:29] LABS: BUN/Creat Ratio 20.75 Ratio (12.00-20.00); Blood Urea Nitrogen 24.9 mg/dL (9.0-27.0); Calcium 10.1 mg/dL (8.7-10.3); Carbon Dioxide 27.7 mmol/L (21.6-31.8); Chloride 104 mmol/L (96-109); Glucose 106 mg/dL (70-110); Potassium 4.7 mmol/L (3.5-5.5); Sodium 142 mmol/L (135-145)
[2024-09-20 17:04] LABS: Basophils # (A) 0.06 X 10*3/uL (0.00-0.10); Basophils % (A) 1.1 %; Eosinophils # (A) 0.27 X 10*3/uL (0.04-0.35); Eosinophils % (A) 5.2 %; Lymphocytes # (A) 2.14 X 10*3/uL (0.90-5.00); MCH 30.2 pg (27.0-32.0); MCHC 31.6 g/dL (32.0-37.0); MCV 95.7 FL (80.0-97.0); Mean Platelet Volume 10.7 FL (9.5-12.2); Monocytes % (A) 7.7 %; NRBC Per 100 WBC 0.02 X 10*3/uL (0.00-0.01); Neutrophils # (A) 2.34 X 10*3/uL (1.80-7.70); Neutrophils % (A) 44.8 %; Platelet Count 251 X 10*3/uL (140-440); RBC 3.97 X 10*6/uL (4.40-5.60); RDW 12.1 % (11.5-14.5); WBC 5.22 X 10*3/uL (4.50-10.00)
== END | disposition home or self-care (01) ==
LOC: LABPAT 11:29
PROVIDERS: ATTEND Urology
DX: Z01.812 Encounter for preprocedural laboratory examination (principal); C61 Malignant neoplasm of prostate
CPT/HCPCS: 80048; 81003; 85025; 86850; 86900; 86901; 87086

== ENCOUNTER 2024-09-26 05:51 | Day surgery (SDC) | payer MEDICARE, BC ==
--- NOTE | 2024-09-24 15:19 | P.HPIHPCON ---
History of Present Illness H&P Date: 09/24/24 Chief Complaint: Prostate cancer This is a 74-year-old male with history of Bighorn 7(4+3) prostate cancer, option of radiation therapy versus robotic radical prostatectomy was discussed in details. Risk-benefit and rationale of each approach were discussed, he agreed to proceed with a robotic radical prostatectomy. Aware of the risk which includes but not limited to bleeding, infection, injury to nearby organs, urinary incontinence, erectile dysfunction. Risk of cancer recurrence, the need for additional treatments and the need for postoperative surveillance was also discussed. He understood all the risk and agreed to proceed Consent for Procedure: I have explained the operation/procedure to the patient, including the risks, benefits, side effects, alternative therapies (including not receiving the proposed treatment or service), the likelihood of the patient achieving his/her goals, and potential recuperation problems for the procedure/sedation/analgesia, as well as any blood products, if indicated. I also explained to the patient the risks, benefits and side effects of the alternatives, as well as the risks related to not receiving the proposed procedure, care, treatment, or services. Past Medical History Past Medical History: Blood Disorder, Cancer, Deep Vein Thrombosis (DVT), Hypertension, Liver Disease, Pulmonary Embolus (PE) Additional Past Medical History / Comment(s): prostate CA,skin CA, factor 5 leiden, chronic back pain, sciatica, HEPATITS A,B,C, Environmental allergies,PE 8-10 yrs ago History of Any Multi-Drug Resistant Organisms: None Reported Past Surgical History: Back Surgery, Orthopedic Surgery Additional Past Surgical History / Comment(s): lumbar, [facility]PH PAIN PROCEDURES. ORIF,LEFT WRIST SURGERY Past Anesthesia/Blood Transfusion Reactions: No Reported Reaction Additional Past Anesthesia/Blood Transfusion Reaction / Comment(s): no hx blood transfusion Past Psychological History: Depression Smoking Status: Former smoker Past Alcohol Use History: Occasional Additional Past Alcohol Use History / Comment(s): quit smoking yrs ago Past Drug Use History: Marijuana Additional Drug Use History / Comment(s): uses THC and CBD oil atleast 2 times per week - Past Family History Father Family Medical History: Myocardial Infarction (OK) Mother Family Medical History: Cancer Additional Family Medical History / Comment(s): BREAST Brother(s) Family Medical History: Fibromyalgia, Hypertension Medications and Allergies Home Medications Medication Instructions Recorded Confirmed Type Rivaroxaban [Xarelto] 20 mg PO HS 06/06/17 09/24/24 History Multivitamins, Thera [Multivitamin 1 each PO DAILY 03/26/18 09/24/24 History (formulary)] Nortriptyline [Pamelor] 10 mg PO HS 09/24/24 09/24/24 History Allergies Allergy/AdvReac Type Severity Reaction Status Date / Time cats AdvReac Itchy Uncoded 09/24/24 13:57 watery eyes,sinus symptoms maple trees AdvReac Itchy Uncoded 09/24/24 13:57 watery eyes -sinus symptoms Surgical - Exam - General no distress, no pain - Eyes normal ocular movement, no pale - ENT normal nares, normal mucosa - Respiratory normal expansion, normal respiratory effort - Abdomen Abdomen: soft, non tender - Psychiatric oriented to time, oriented to person, oriented to place Assessment and Plan Assessment: OR for robotic radical prostatectomy with bilateral pelvic lymph node
[2024-09-24 15:47] VITALS: BMI 25.0
[2024-09-26] MEDS ORDERED: fentaNYL (PF) 50 MCG/ML 2 ML AMP IVP PRN (06:17)
[2024-09-26] MEDS ORDERED: LIDOCAINE 1% (10MG/ML) FOR IV START INTRADERMA PRN (06:17)
[2024-09-26] MEDS ORDERED: MIDAZOLAM 2 MG/2 ML VIAL IV PRN (06:17)
[2024-09-26 06:55] LABS: Glucose,Whole Blood 95 mg/dL (70-110)
[2024-09-26] MEDS: IV FLUID CONTINUATION 1,000 ML IV ONE ×2 (07:04)
[2024-09-26] MEDS: ONDANSETRON 4 MG/2 ML VIAL IVP ONE (07:11)
[2024-09-26] MEDS: LACTATED RINGERS 1,000 ML IV SCH (07:11)
[2024-09-26] MEDS: DEXAMETHASONE SOD PHOSPHATE 4 MG/ML 1 ML VIAL IV ONE (07:11)
[2024-09-26] MEDS: HEPARIN SODIUM,PORCINE 5,000 UNIT/ML 1 ML VIAL SQ PRN (07:11)
[2024-09-26 07:24] LABS: INR 1.1 (<1.2); Partial Thromboplastin Time 25.9 sec (22.0-30.0); Prothrombin Time 11.7 sec (10.0-12.5)
[2024-09-26] MEDS ORDERED: LIDOCAINE 1% INJ 10MG/ML (20 ML MDV) ONE (07:25)
[2024-09-26] MEDS ORDERED: PROPOFOL 10 MG/ML 20 ML VIAL IV ONE (07:25)
[2024-09-26] MEDS ORDERED: ROCURONIUM 10 MG/ML (5 ML VIAL) IV ONE (07:25)
[2024-09-26] MEDS ORDERED: NEOSTIGMINE 1 MG/ML 10 ML VIAL ONE (07:25)
[2024-09-26] MEDS ORDERED: LIDOCAINE 4% LTA KIT (4 ML) TOPICAL ONE (07:25)
[2024-09-26] MEDS ORDERED: fentaNYL (PF) 50 MCG/ML 2 ML AMP ONE (07:25)
[2024-09-26] MEDS ORDERED: PHENYLEPHRINE-0.9% NACL SYG 1,000 MCG/10 ML SYRINGE ONE (07:25)
[2024-09-26] MEDS ORDERED: MIDAZOLAM 2 MG/2 ML VIAL ONE (07:25)
[2024-09-26] MEDS ORDERED: SUCCINYLCHOLINE CHLORIDE 200 MG/10 ML VIAL IV ONE (07:25)
[2024-09-26] MEDS ORDERED: GLYCOPYRROLATE 0.2 MG/ML 2 ML VIAL ONE (07:25)
[2024-09-26] MEDS ORDERED: polyethylene glycoL 3350 17 GM POWD.PACK PO PRN (07:37)
[2024-09-26] MEDS: BUPIVACAINE (PF) 0.25% 30 ML VIAL SQ ONE ×2 (07:54→11:32)
--- NOTE | 2024-09-26 11:45 | P.OP ---
Date of Procedure: 09/26/24 Preoperative Diagnosis: Prostate cancer Postoperative Diagnosis: Same Procedure(s) Performed: Robotic assisted laparoscopic radical prostatectomy with bilateral pelvic lymph node dissection Implants: none Anesthesia: SARTHAKA Surgeon: Enrrique Chen Estimated Blood Loss (ml): 100 Pathology: other (Prostate, bilateral seminal vesicles, bilateral pelvic lymph node dissection) Condition: stable Disposition: PACU Indications for Procedure: This is a 74-year-old male with history of Luann 7(4+3) prostate cancer, option of radiation therapy versus robotic radical prostatectomy was discussed in details. Risk-benefit and rationale of each approach were discussed, he agreed to proceed with a robotic radical prostatectomy. Aware of the risk which includes but not limited to bleeding, infection, injury to nearby organs, urinary incontinence, erectile dysfunction. Risk of cancer recurrence, the need for additional treatments and the need for postoperative surveillance was also discussed. He understood all the risk and agreed to proceed Description of Procedure: After preoperative antibiotics were started, the patient was taken to the operating room. Anesthesia was induced and the patient was placed in a supine position, with adequate padding of the pressure points, shoulders, back, legs and arms. He was then prepped and draped in the standard fashion. A critical pause was performed using two patient identifiers. A 16F mcmahon catheter was placed to gravity drainage. A pneumo-peritoneum was created with placement of a Veress needle to 20 mm Hg without complication, and a 8 Fr trocar was placed above the umbillicus. Under direct vision a 8mm robotic ports was placed lateral to each rectus slightly below the camera port. Patient had a pain pump subcutaneously along the left quadrant, thus the robotic trocar was placed above the pain pump in order to avoid injury to the pain pump. The left iliac fossa 8mm port was placed. The right assistant teacher right iliac fossa 12mm port and right paramedian 5mm portwere placed. After the patient was placed in the trendelenberg position, the robot was then docked to the 8mm robotic ports and then each robotic arm and tower was checked in relation to the patient's legs and hands to avoid inadvertent compression. The peritoneal cavity was inspected. An inverted U-shaped incision began laterally to the left medial umbilical ligament and extended high across the midline to the right umbilical ligament. The limbs of the "U" extended to the level of the vasa on both sides. We next developed the preperitoneal space and the space of Retzius. Cautery was used to dissected the bladder away from the prostate. After the anterior bladder neck was incised and the bladder entered the the posterior bladder neck was exposed and the ureteral orifces identified. The posterior bladder neck was then incised and dissected away from the prostate. The vas and the seminal vesicles were now exposed and dissected to their insertions into the prostate and were not spared. The posterior layer of the Denonvillier's fascia was incised to enter macey the plane between prostate and perirectal fat. The pedicle was controlled with the vessel sealer, complete nerve preservation was performed on the left, no nerve preservation was performed on the right. The puboprostatic ligament was incised where it inserted into the apex of the prostate and a plane between urethra and dorsal venous complex developed to expose the anterior urethral surface. The anterior wall of the urethra was transected with the cut setting a few millimeters distal to the apex of the prostate. The dorsal vein was ligated using 3-0 V lock bilateral obturator and external iliac lymph node packets were carefully dissected after careful visualization of the hypogastric artery and obturator nerve. There was careful attention paid to hemostasis with judicious use of cautery. The urethrovesical anastomosis was performed . the posterior denovillers was reapproximated using 3-0 V lock. A 6 and 6 inch 3-0 V-Lock suture was used to anastomose the urethra and bladder, starting at the 6:00 posterior position. Mucosa was secured in every stitch, to ensure a mucosa to mucosa anastomosis. The stitch was regularly cinched and the anastomosis tightened. Care was taken to not violate the ureteral orifices. The Mcmahon catheter was advanced, the bladder filled, and the anastomosis was tested, as described above. Anastomsis was watertight at 200 mL The periumbilical fascia was closed with 1-0-PDS suture in figure of eight fashion. All ports were closed with a subcuticular 4-0 monocryl and Dermabond. Sponge, instrument, and needle counts were correct at the end of the case x2. All specimens including prostate and lymph nodes were sent to pathology for diagnosis and will be available in a week. The patient tolerated the surgery well and without complication. He awoke without difficulty and was taken to the recovery room in stable condition
[2024-09-26] MEDS: HYDROmorphone 0.5 MG/0.5 ML SYRINGE IVP PRN (11:57)
[2024-09-26] MEDS: KETOROLAC 15 MG/ML 1 ML VIAL IVP SCH (13:27)
[2024-09-26] MEDS: HEPARIN SODIUM,PORCINE 5,000 UNIT/ML 1 ML VIAL SQ SCH (13:55)
[2024-09-26] MEDS: GABAPENTIN 300 MG CAP PO SCH (13:55)
[2024-09-26] MEDS: NON FORMULARY DRUG (Morphine Pain Pump 1 DOSE) MISCELLANE SCH (13:55)
[2024-09-26] MEDS: PSEUDOEPHEDRINE 30 MG TAB PO SCH (13:57)
[2024-09-26] MEDS: D5-0.45% NACL WITH KCL 20MEQ/L 1,000 ML IV SCH (14:12)
[2024-09-26] MEDS: HYDROmorphone 1 MG/ML 1 ML SYRINGE IVP PRN (15:51)
[2024-09-26] MEDS: amLODIPine 10 MG TAB PO SCH (21:39)
[2024-09-26] MEDS: NORTRIPTYLINE 10 MG CAP PO SCH (21:40)
[2024-09-27 07:38] VITALS: BP 111/65; PULSE 60; RESP 18; TEMP 98.3
--- NOTE | 2024-09-27 08:24 | P.DS ---
Providers Attending physician: Enrrique Chen MD Primary care physician: [facility] Course: ra the patient underwent a robotic-assisted radical prostatectomy by 09/27/24. He had an uneventful night. Vital signs are stable. He is clear. His abdomen is soft. His pain is under control. He does have chronic back pain and has a pain pump. Vital signs are stable. He is ready for discharge home. Regular diet limited activity. He will go home with a Moreno. He'll follow-up in the office in 7-10 days. Postoperative instructions been given. He will not be given pain medicine as he has a chronic pain pump. Pathology report is pending his condition is good. Plan - Discharge Summary Discharge Rx Participant: No New Discharge Prescriptions: No Action Rivaroxaban [Xarelto] 20 mg PO HS Multivitamins, Thera [Multivitamin (formulary)] 1 each PO DAILY Nortriptyline [Pamelor] 10 mg PO HS polyethylene glycoL 3350 [Miralax] 17 gm PO Q3D PRN PRN Reason: Constipation Vitamin D3 Unk Dose 1 dose PO DAILY Co Q-10 Unk Dose 1 dose PO DAILY Calcium Unk Dose 1 dose PO DAILY Pseudoephedrine HCl [Sudafed] 1 tab PO DAILY L.acidoph,Paracasei, B.lactis [Probiotic] 1 each PO DAILY Red Rice Yeast 1 dose PO DAILY Magnesium Citrate Unk Dose 1 dose PO DAILY Fish Oil Unk Dose 1 dose PO DAILY Morphine Pain Pump 1 dose INTRATHECA CONTINUOUS amLODIPine 10 mg PO HS Gabapentin [Neurontin] 300 mg PO TID Discharge Medication List Rivaroxaban [Xarelto] 20 mg PO HS 06/06/17 [History] Multivitamins, Thera [Multivitamin (formulary)] 1 each PO DAILY 03/26/18 [History] Calcium Unk Dose 1 dose PO DAILY 09/24/24 [History] Co Q-10 Unk Dose 1 dose PO DAILY 09/24/24 [History] Fish Oil Unk Dose 1 dose PO DAILY 09/24/24 [History] L.acidoph,Paracasei, B.lactis [Probiotic] 1 each PO DAILY 09/24/24 [History] Magnesium Citrate Unk Dose 1 dose PO DAILY 09/24/24 [History] Morphine Pain Pump 1 dose INTRATHECA CONTINUOUS 09/24/24 [History] Nortriptyline [Pamelor] 10 mg PO HS 09/24/24 [History] Red Rice Yeast 1 dose PO DAILY 09/24/24 [History] Vitamin D3 Unk Dose 1 dose PO DAILY 09/24/24 [History] amLODIPine 10 mg PO HS 09/24/24 [History] polyethylene glycoL 3350 [Miralax] 17 gm PO Q3D PRN 09/24/24 [History] Gabapentin [Neurontin] 300 mg PO TID 09/26/24 [History] Pseudoephedrine HCl [Sudafed] 1 tab PO DAILY 09/26/24 [History] Follow up Appointment(s)/Referral(s): Enrrique Chen MD [STAFF PHYSICIAN] - 1 Week Discharge Disposition: HOME SELF-CARE
== END 2024-09-27 10:28 | disposition home or self-care (01) ==
LOC: OR 05:51 → 4SSUR 12:56 → OR 09-27 10:28
PROVIDERS: ATTEND Urology
DX: C61 Malignant neoplasm of prostate (principal); I10 Essential (primary) hypertension; F32.A Depression, unspecified; G47.33 Obstructive sleep apnea (adult) (pediatric); D68.51 Activated protein C resistance; Z86.718 Personal history of other venous thrombosis and embolism; Z86.711 Personal history of pulmonary embolism; Z98.890 Other specified postprocedural states; Z87.891 Personal history of nicotine dependence; Z82.49 Family history of ischemic heart disease and other diseases of the circulatory system; Z79.899 Other long term (current) drug therapy
CPT/HCPCS: 55866; 38571; 88344; 82040; 85610; 85730; 88307; 88309; J2250; J0330; J1644 ×2; J1100; J2710; J0690; J2405; J2003; J3010; J1171 ×3; J1885 ×2; J2704; J2371; J0665; J1596

== ENCOUNTER → 2024-11-11 | Outpatient (CLI) | payer MEDICARE, BC | END | disposition home or self-care (01) | LOC: LABWHC1 10:06 | PROVIDERS: ATTEND Urology | DX: Z53.9 Procedure and treatment not carried out, unspecified reason (principal) ==

== ENCOUNTER → 2024-12-25 | Outpatient (CLI) | payer MEDICARE, BC ==
--- NOTE | 2024-12-25 15:24 | US ---
EXAMINATION TYPE: US kidneys/renal and bladder DATE OF EXAM: 12/25/2024 COMPARISON: US 2023, CT 2023 CLINICAL INDICATION: Male, 74 years old with history of R32 URINARY LEAKAGE; Urinary leakage. Hx pros alexus CA, prostate removed in September 2024. TECHNIQUE: Grayscale imaging of the bilateral kidneys and urinary bladder: FINDINGS: EXAM MEASUREMENTS: Right Kidney: 10.6 x 4.5 x 5.6 cm Left Kidney: 11.4 x 4.7 x 5.6 cm Post Void Residual Volume: 40.4 mL Right Kidney: No hydronephrosis or masses seen Left Kidney: Anechoic areas seen that appear to be connected to each other. Question cystic areas v ersus some hydro seen. Area measures 6.0 x 2.5 x 2.2 cm. Bladder: *Appearance of septation/?bladder diverticulum within right bladder: 3.5 x 4.2 x 3.7 cm. Bilateral Jets seen: Yes Normal Post Void Residual: Yes IMPRESSION: Bladder diverticula. Cystitis. Mild hydronephrosis parapelvic cysts. [facility], , 12/25/2024 3:21 PM
== END | disposition home or self-care (01) ==
LOC: RADUSWWP 13:20
PROVIDERS: ATTEND Internal Medicine
DX: N32.3 Diverticulum of bladder (principal); N28.1 Cyst of kidney, acquired; R32 Unspecified urinary incontinence; N13.30 Unspecified hydronephrosis
CPT/HCPCS: 76770

== ENCOUNTER → 2025-01-09 | Outpatient (CLI) | payer MEDICARE, BC ==
--- NOTE | 2025-01-09 13:51 | CT ---
EXAMINATION TYPE: CT abdomen pelvis wo con DATE OF EXAM: 01/09/2025 COMPARISON: 01/10/2016 CLINICAL INDICATION: Male, 74 years old with history of N13.30 hydronephrosis; PHH, nodules on bladde r TECHNIQUE: CT scan of the abdomen and pelvis is performed without oral or IV contrast. CT DLP: [address] CTDI: mGy Automated exposure control for dose reduction was used. FINDINGS: The lungs are clear. Gallbladder is normal and there is no gallstone, wall thickening, pericholecystic fluid or distention . There is no biliary ductal dilatation. There is no organomegaly of the liver, pancreas, spleen or adrenal glands. There are no renal calcifications or hydronephrosis. The caliber of the abdominal aorta is normal and there is no retroperitoneal adenopathy or hemorrhage . The bowel loops are normal in caliber is no evidence of obstruction. No inflammatory changes are iden tified in the mesentery and there is no free intraperitoneal air or fluid. There is surgical absence of the prostate. Urinary bladder is not well distended but the wall is diff usely thickened. There is a suggestion of an intraluminal filling defect and the possibility of a noreen dder mass cannot be excluded. Associated with the right anterolateral wall of the urinary bladder, i s a 2.7 x 6.4 cm fluid structure with a thin well-circumscribed wall possibly a bladder diverticulum. Further evaluation of the urinary bladder is recommended. There is fusion of the L4-S1 lumbar segments but no focal osseous lesions. IMPRESSION: 1. No evidence of renal calcification or hydronephrosis. 2. Abnormalities of the urinary bladder as described above. Neoplasm is not excluded and further eval uation of urinary bladder is indicated. [facility], , 01/09/2025 1:49 PM
== END | disposition home or self-care (01) ==
LOC: RADCTMAIN 13:14
PROVIDERS: ATTEND Urology
DX: N13.30 Unspecified hydronephrosis (principal)
CPT/HCPCS: 74176

== ENCOUNTER 2025-02-17 08:10 | Day surgery (SDC) | payer MEDICARE, BC ==
[2025-02-17] MEDS ORDERED: MIDAZOLAM 2 MG/2 ML VIAL IV PRN (08:48)
[2025-02-17] MEDS ORDERED: HYDROmorphone 0.5 MG/0.5 ML SYRINGE IVP PRN (08:48)
[2025-02-17] MEDS ORDERED: LIDOCAINE 1% (10MG/ML) FOR IV START INTRADERMA PRN (08:48)
[2025-02-17] MEDS ORDERED: LACTATED RINGERS 1,000 ML IV SCH (08:48)
[2025-02-17] MEDS ORDERED: fentaNYL (PF) 50 MCG/ML 2 ML AMP IVP PRN (08:48)
[2025-02-17] MEDS: IV FLUID CONTINUATION 1,000 ML IV ONE (09:36)
[2025-02-17 09:48] VITALS: TEMP 98.5
[2025-02-17] MEDS: NA PHOS,M-B/NA PHOS,DI-BA 133 ML ENEMA RECTAL ONE (09:52)
[2025-02-17] MEDS: DEXAMETHASONE SOD PHOSPHATE 4 MG/ML 1 ML VIAL IV ONE (10:08)
[2025-02-17] MEDS: ONDANSETRON 4 MG/2 ML VIAL IVP ONE (10:08)
[2025-02-17] MEDS ORDERED: MIDAZOLAM 2 MG/2 ML VIAL ONE (10:42)
[2025-02-17] MEDS ORDERED: LIDOCAINE 1% INJ 10MG/ML (20 ML MDV) ONE (10:42)
[2025-02-17] MEDS ORDERED: fentaNYL (PF) 50 MCG/ML 2 ML AMP ONE (10:42)
[2025-02-17] MEDS ORDERED: PROPOFOL 10 MG/ML 20 ML VIAL IV ONE (10:42)
[2025-02-17] MEDS ORDERED: SUCCINYLCHOLINE CHLORIDE 200 MG/10 ML VIAL IV ONE (10:42)
[2025-02-17] MEDS ORDERED: PHENYLEPHRINE 10 MG/ML VIAL ONE (10:42)
[2025-02-17] MEDS: SODIUM CHLORIDE 0.9% 50 ML with ceFAZolin 2,000 MG IV ONE (11:13)
[2025-02-17] MEDS: BUPIVACAINE (PF) 0.25% 30 ML VIAL SQ ONE ×2 (11:22→11:25)
[2025-02-17] MEDS: LACTATED RINGERS 1,000 ML IV ONE (11:29)
[2025-02-17] MEDS ORDERED: ACETAMINOPHEN TAB 325 MG TAB PO PRN (11:43)
[2025-02-17] MEDS ORDERED: NALOXONE 0.4 MG/ML 1 ML VIAL IV PRN (11:43)
[2025-02-17] MEDS ORDERED: traMADol 50 MG TAB PO PRN (11:43)
[2025-02-17] MEDS ORDERED: HYDROcodone/APAP 5-325MG 1 EACH TAB PO PRN (11:43)
--- NOTE | 2025-02-17 11:47 | P.OP ---
Date of Procedure: 02/17/25 Procedure(s) Performed: PREOPERATIVE DIAGNOSIS: Symptomatic hemorrhoids POSTOPERATIVE DIAGNOSIS: Same PROCEDURE: Excisional hemorrhoidectomy right anterior location SURGEON: Edwin EBL: Cecilio cc ANESTHESIA: General COMPLICATIONS: None OPERATIVE PROCEDURE: Patient placed in the prone jackknife position after gene ral anesthesia was achieved. The patient had a symptomatic hemorrhoid in the right anterior location. The rectal retractor was utilized. No anorectal abnormalities were noted other than the hemorrhoids. At the apex of the external hemorrhoid a 3-0 chromic stitch was used to ligate the feeding vessel. This was tied down and the stitch was left in place. We then made an elliptical incision extending from the perianal skin elliptically around the external hemorrhoid taking care to avoid any injury to the anal sphincter. The hemorrhoid was excised using a combination of sharp dissection, electrocautery, and the harmonic scalpel. This dissection took place just distal to the stitch that was previously placed. Using that same 3-0 chromic stitch I then sutured closed the defect in a locking fashion. This was carried out to the apex of our skin incision. This was then tied. No additional hemorrhoids were seen. The patient did have some scarring from previous hemorrhoid surgeries. The patient had no significant stricture of the anal canal and mucosa appeared adequate. No fistulas or fissures were seen. The surgical site was inspected for bleeding. None was seen. The tissues around the surgical site was infiltrated with quarter percent Marcaine solution. Gelfoam was then placed against each incision. A rolled piece of 4 x 4 was placed in the gluteal crease. DISPOSITION: Stable to recovery room
[2025-02-17] MEDS ORDERED: KETOROLAC 15 MG/ML 1 ML VIAL IVP SCH (12:00)
[2025-02-17 12:44] VITALS: BP 157/79; PULSE 59; RESP 16
== END 2025-02-17 12:58 | disposition home or self-care (01) ==
LOC: OR 08:10
PROVIDERS: ATTEND Surgery
DX: K64.4 Residual hemorrhoidal skin tags (principal)
CPT/HCPCS: 88304; 46999; J2250; J0330; J1100; J2405; J0690; J2003; J3010; J2704; J2371; J0665